=== PATIENT | male | born 1935 | race Caucasian/White ===

== ENCOUNTER 2020-12-22 19:06 | Emergency (ER) | payer OTHER ==
[~2020-12-22] VITALS: Ht 172.7 cm; Wt 68.0 kg
[2020-12-23 00:20] VITALS: BP 122/83
[2020-12-23] MEDS ORDERED: TYLENOL325 M1 PO (02:01)
[2020-12-23] MEDS ORDERED: ASA81BEC PO (02:03)
[2020-12-23] MEDS ORDERED: LIPITOR 20 MG T20 M1 PO (02:04)
[2020-12-23] MEDS ORDERED: AMARYL2 MG PO (02:05)
[2020-12-23] MEDS ORDERED: LOPRESSOR50 MG PO ×2 (02:06→02:19)
[2020-12-23] MEDS ORDERED: TRAMADOL 50 MG50 MG PO (02:08)
[2020-12-23] MEDS ORDERED: TOPROL XL50 MG ×2 (02:11→03:52)
[2020-12-23] MEDS ORDERED: AMARYL2 M1 PO (02:18)
== END 2020-12-23 00:23 ==
LOC: ER 19:06
DX: F43.0 Acute stress reaction (principal); Z20.822 Contact with and (suspected) exposure to COVID-19; R11.0 Nausea; E10.9 Type 1 diabetes mellitus without complications; E78.5 Hyperlipidemia, unspecified; I10 Essential (primary) hypertension

== ENCOUNTER 2020-12-22 20:20 | Inpatient (IN) | payer OTHER ==
[~2020-12-22] VITALS: Ht 165.1 cm; Wt 63.5 kg
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
[2020-12-23 00:30] VITALS: BP 132/82
[2020-12-23] MEDS ORDERED: TYLENOL325 M1 PO (02:01)
[2020-12-23] MEDS ORDERED: ASA81BEC PO (02:03)
[2020-12-23] MEDS ORDERED: LIPITOR 20 MG T20 M1 PO (02:04)
[2020-12-23] MEDS ORDERED: AMARYL2 MG PO (02:05)
[2020-12-23] MEDS ORDERED: LOPRESSOR50 MG PO ×2 (02:06→02:19)
[2020-12-23] MEDS ORDERED: TRAMADOL 50 MG50 MG PO (02:08)
[2020-12-23] MEDS ORDERED: TOPROL XL50 MG ×2 (02:11→03:52)
[2020-12-23] MEDS ORDERED: AMARYL2 M1 PO (02:18)
[2020-12-23 08:25] VITALS: BP 114/65
--- NOTE | 2020-12-23 14:40 | NUR ---
Alert and orientated X 4. States he is here for an evaluation and wants to get started. Denies SI/HI. Ambulates with slightly irregular gait but steady with walker. Breath sounds clear. Reg HR auscultated. Color pink with brisk capillary refill and palpable peripheral pulses. Fingers and toes slightly cool. No edema noted. Independent with voiding. Active bowel sounds over soft, rounded abdomen. States he had BM 2 days ago. Calm, cooperative and pleasant. Compliant. To CT with VISUAL PRESENTATION MANAGER, results per report, no acute processes. Sitting in day room without s/o distress. Dr. Chery notified of hyperglycemia, ordering insulin sliding scale.
[2020-12-23 19:55] VITALS: BP 121/66
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
[2020-12-23 23:15] VITALS: BP 121/66
[2020-12-23 23:21] VITALS: BP 121/66
--- NOTE | 2020-12-24 02:25 | NUR ---
Assumed care on 12/23/20 @ 1900, in bed awakens to voice, Cooperative with care, oriented x 2-3. FSBS 183, 3 U of S/S insulin provided. Bed in low position, low fall risk, rounding as per unit protocol for safety and comfort.
[2020-12-24 09:49] VITALS: BP 110/88
--- NOTE | 2020-12-24 10:34 | NUR ---
SW completed patient pyscho assessment and treatment plan
--- NOTE | 2020-12-24 12:02 | NUR ---
"ITS ABOUT TIME I GET SOME MEDICINE HERE-I HAVEN'T GOTTEN ANY YET" PER PT DURING AM MED PASS-ON APPROACH OBSERVED TO BE SITTING IN DAYROOM EATING BREAKFAST. ORIENTED TO PERSON,PLACE-NO TO DATE. WHEN QUESTIONED ABOUT INCIDENTS LEADING TO HOSPITAL STAY IS VAGUE STATING "I GUESS THEY THOUGHT I NEEDED MY HEAD EXAMINED" USING ROLLER WALKER FOR AMBULATION AND GAIT IS SLOW AND STEADY WITH ASSISITVE DEVICE. DENIES SI/SH/HI. COMPLIENT WITH MEDS AND UNIT RULES/STRUCTUR. ATTENDED GROUPS WITHOUT PROMPTING. APPETTIE IS GOOD. DOES STATE DURING AM ASSESSMENT THAT HIP IS "HURTIN A TWINGE" BUT DENIES NEED FOR PRN MEDICATION WHEN OFFERED. NO AGITATION NOTED OR REPORTED.
[2020-12-24 19:59] VITALS: BP 139/80
--- NOTE | 2020-12-25 05:05 | NUR ---
Assumed care of pt at 1900. Pt is in room at start of shift and he has remained there. Pt is calm, pleasant and cooperative with nursing assessment and medcations Pt tasks, pt takes mediations whole and with water. Pt denies pain. Denies depression, anxiety, SI/HI. Pt HS blood sugar was 290 and pt received 6 Units of sliding scale insulin. Pt remained in his room most of night, but did come out to dining area briefly for HS snack. Pt rested quietly in bed throughout night and appeared to be sleeping. Pt remains on q 12 minute rounds for safety. Will continue to monitor for any changes in mood and behavior. Pt affect was bright during assessment as he told this nurse about his dogs and cat.
--- NOTE | 2020-12-25 09:30 | NUR ---
Nutirtion: pt admitted with unspecified psychosis; episode of agressive behavior. Intake over weekend was variable 5-85%. RN today reports pt ate 100% of breakfast. Wt is WNL. Pt with hx of DM. BG 172-290. No metabolic labs. Meds: statin, Glimepiride, insulin. Wt is WNL, no wt hx. Will add Glucerna to lunch trays. Assess at mild nutrition risk at this time; RD to follow up by 12/29.
[2020-12-25 10:29] VITALS: BP 121/72
--- NOTE | 2020-12-25 14:39 | NUR ---
Assumed pt care at 0700. pt was calm and co-operative. alert and oriented x4. Assessments completed,VSS. Ambulates with a walker.pt uses a urinal. pt denies si/hi. At this time there is no c/o of pain. ATE 100% of his breakfast.Took his meds whole with thin liquid, no difficulty noted. after lunch pt went back to his room to get rest. At this time pt is in group participating.Will continue to monitor.
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
[2020-12-25 19:06] LABS: SYPHILIS AB Non Reactive (Non Reactive)
[2020-12-25 19:27] VITALS: BP 116/67
--- NOTE | 2020-12-26 02:17 | NUR ---
ASSESSMENT: PT REMAIN ALERT AND ORIENT TIMES THREE. DENIED SI/HI PT SITTING QUIETLY IN THE DAY AREA OBSERVING THE EVENTS SURROUNDING HIM. PT DENIED PAIN, SOB AND N/V. PT LATER CAME OUT TO THE DAY AREA FOR APPROXIMATELY 15 MINS ATT 0200 STATING THAT HE WAS SAD BECAUSE THE DOCTOR TOLD HIM THAT HE WOULD NOT BE RETURNING HOME WHEN HE LEAVES HERE; HE WOULD BE GOING TO ANOTHER FACILITY FOR SKILLED NURSING TREATMENT. ENCOURAGEMENT AND REASSURANCE GIVEN TO THE PT. SOON HE WENT BACK TO BED. WILL CONTINUE TO MONITOR.
--- NOTE | 2020-12-26 07:27 | EKG ---
[place] [address] [facility] [place] [address] ELECTROCARDIOGRAM REPORT Name: NAUN SULLIVAN Room #: 523B-B ADM IN M.R.#: [id number] Admission: 12/23/20 Attend Phys: José Miguel Hutton DO Discharge: Date of : 37 Report #: [id number] [facility] Test Date: 2020-12-25 Test Time: 18:33:52 Pat Name: NAUN SULLIVAN Department: Room: 523B B Gender: M Hose Turner: CHUY : 1935 Requested By: José Miguel Hutton Order Number: [id number] : Jimbo Pabon Measurements Intervals Rolfe Rate: 72 P: 10 MI: 111 QRS: 56 QRSD: 96 T: 31 QT: 413 QTc: 453 Interpretive Statements Sinus rhythm Borderline short MI interval Low voltage, extremity leads No previous ECG available for comparison Electronically Signed On 12-26-2020 7:27:14 CDT by Jimbo Pabon [email or web address] <ELECTRONICALLY SIGNED> By: Jimbo Pabon MD, [facility] 12/26/20 0727 183 183 Jimbo Pabon MD, FACC /EPI
[2020-12-26 07:55] VITALS: BP 97/62
--- NOTE | 2020-12-26 09:58 | NUR ---
Assumed pt care at 0700. pt was alert and oriented x4. pt was calm and co-operative with care. denies si/hi. no c/o of pain at this time. Assessments completed Vss. attended groups, partially participated. ambulates with a walker. took medication whole without difficulty. pt metoprolol was not administer because his blood pressure was low, 97/62. at this time pt is currently sitting in the room. will continue to monitor.
[2020-12-26 19:27] VITALS: BP 126/70
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
[2020-12-27 09:15] VITALS: BP 123/82
--- NOTE | 2020-12-27 11:18 | NUR ---
PATIENT HAS BEEN UP, AND OUT ON THE UNIT, PARTICIPATES IN GROUP THERAPY. PATIENT TOOK ALL MEDICATION WHOLE WITHOUT DIFFICULTY, HE IS EATING MEALS, AND DRINKING FLUID WELL. PATIENT DENIES SUICIDAL/HOMICIDAL IDEATION, HE DENIES DEPRESSION/ANXIETY/PAIN, " I FEEL PRETTY GOOD, AM GOING HOME TODAY, MY DAUGHTER IS DROPPING ALL THE CHARGES, AND I GET TO GO HOME" PATIENT WILL NOT DISCLOSE WHAT CHARGES DAUGHTER ABOUT TO DROP. AFFECT IS BRIGHT/EUTHYMIC. MOOD IS CALM. NO SLIDING SCALE INSULIN ADMINISTERED THIS MORNING, BLOOD SUGAR WITH RESULT OF 149. NO SIGN OF ACUTE DISTRESS NOTED AT THIS TIME, WILL MONITOR FOR SAFETY.
--- NOTE | 2020-12-27 13:06 | NUR ---
ASTRID received a vm from Gretchen stating that she and her family have decided that pt should come home; pt's can not bear placing him in a nursing facility. There is also concern about the costs. ASTRID and Dr. Hutton contacted Gretchen at [phone] and spoke with her about d/c. Dr. Hutton agreed to keep pt at least until the beginning of next week to monitor the recent med change he made. Gretchen said she has been researching elder care services to get in home care for pt. ASTRID sent Gretchen a welcome email to [email or web address]. ASTRID team will continue to follow pt during his stay on this unit.
[2020-12-27 19:21] VITALS: BP 132/73
--- NOTE | 2020-12-28 03:26 | NUR ---
ASSUMED CARE FROM DAY SHIFT PT RESTING IN BED WHEN ASSUMED CARE, NO CONCERNS VOICED PT, PT STATES" IM TRYING TO BE GOOD SO I CAN GET BACK HOME. PO MEDICATION, PT THEN ABULATED TO DAYRROM FOR A SHORT TIME THEN RETURNED TO ROOM. SLEEPING QUIETLY THROUGHOUT ROUNDING. WILL CONITNUE WITH CURRENT PLAN OF CARE.
[2020-12-28 07:20] VITALS: BP 97/56
[2020-12-28 09:41] VITALS: BP 97/56
--- NOTE | 2020-12-28 11:30 | NUR ---
Alert and orientated X4. Calm, cooperative. Denies SI/HI. Breath sounds clear. Reg HR auscultated. Color pink with brisk capillary refill and palpable peripheral pulses. No edema noted. Yellow urine per toilet. Active bowel sounds over soft, rounded abdomen. Reg gait with walker.
[2020-12-28 19:15] VITALS: BP 100/53
[2020-12-29 10:14] VITALS: BP 105/76
--- NOTE | 2020-12-29 11:41 | NUR ---
PT ALERT AND ORIENTED TIMES FOUR. VSS. PT DENIES S/HI/AH/VH, AND PAIN. PT TOLERATES MEDS AND MEALS. PT ATTENDED GROUPS THIS SHIFT. WILL CONTINUE TO MONITOR.
--- NOTE | 2020-12-29 15:17 | NUR ---
ASTRID received a call from Liz with [facility]. ASTRID provided an update to her concerning the pt wanting pt home. 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 She said that Gretchen also told her she is working on services for pt. SW team will continue to follow pt during his stay on this unit.
--- NOTE | 2020-12-29 15:25 | NUR ---
RT Progress Note- Abhinav has been present in the milieu and recreation therapy groups since his admission. Abhinav has been hyper focused on his marriage and discharge and is difficult to engage in any topics outside of these. He has not displayed any aggression or agitation in groups. OPENER will continue to encourage participation.
[2020-12-29 19:36] VITALS: BP 103/59
--- NOTE | 2020-12-29 23:53 | NUR ---
Alert and orientated X4. Calm, cooperative and compliant. States he is here for an evaluation and it is going very well. Took med whole with H2O. Ambulates with walker with slow, regular gait. Breath sounds clear. Reg HR auscultated. Color pink with brisk capillary refill and palpable peripheral pulses. No edema noted. 500 cc clear yellow urine per urinal. Active bowel sounds over soft, flat abdomen. States he had BM earlier in evening. Currently sleeping without s/o distress.
[2020-12-30 09:13] VITALS: BP 144/81
[2020-12-30 11:27] VITALS: BP 144/97
--- NOTE | 2020-12-30 13:25 | NUR ---
132 RESUMMED CARE FROM OVERNIGHT SHIFT THIS AM, PATIENT IN DAY ROOM CALM QUIET. PATIENT ATE BREAKFAST TOOK MEDICATION WITHOUT INCIDENCE, PATIENT ALERT ORIENTED TIMES 4. PATIENTS ABDOMEN SOFT BOWEL SOUNDS PRESENT PATIENTS LUNGS CLEAR. PATIENT DENIES SI/HI/AH/VH AT PRESENT. PATIENT CALM COOPERATIVE PARTICIPATES IN GROUPS NO BEHAVIORS THIS SHIFT. WILL CONTINUE TO MONITOR PATIENT FOR SAFETY AND BEHAVIORS.
[2020-12-30 15:56] LABS: URINE BILIRUBIN NEGATIVE (Negative); URINE BLOOD NEGATIVE (Negative); URINE CLARITY CLEAR; URINE COLOR YELLOW; URINE GLUCOSE-RANDOM* TRACE (Negative); URINE KETONES NEGATIVE (Negative); URINE LEUKOCYTES-REFLEX NEGATIVE (Negative); URINE NITRITE-REFLEX NEGATIVE (Negative); URINE PROTEIN (DIPSTICK) NEGATIVE (Negative); URINE SPECIFIC GRAVITY 1.025 (1.005-1.035)
--- NOTE | 2020-12-30 16:22 | NUR ---
SW met with pt 1:1 to help him process his feelings related to being hospitalized. He expressed worry about not knowing when he will be discharged. He also reported the last couple of times he tried calling his , there was no answer. SW team will continue to monitor.
[2020-12-30 19:20] VITALS: BP 105/61
[2020-12-30] MEDS ORDERED: DIGOXIN125 MCG PO (20:31)
[2020-12-30] MEDS ORDERED: ENOXAPARIN40 MG/0.1 SUBQ (20:32)
[2020-12-30] MEDS ORDERED: DONEPEZIL HCL 55 M1 PO (20:32)
[2020-12-30] MEDS ORDERED: LEVETIRACETAM750 MG PO (20:33)
--- NOTE | 2020-12-30 22:55 | NUR ---
Alert and orientated X 4. Calm, cooperative and compliant. States his keeps telling him he will be discharged soon. Denies SI/HI. Breath sounds clear. Reg HR auscultated. Color pink with brisk capillary refill and palpable peripheral pulses. No edema. Yellow urine per urinal. Active bowel sounds over soft, rounded abdomen. States he had BM yesterday. Declines HS snack stating he ate 100% of dinner. Ambulates with walker with regular steady gait. Currently awake in room, no s/o distress.
[2020-12-31 06:12] LABS: ABSOLUTE NEUTROPHILS 5.5 thou/uL (1.4-8.2); BASOPHILS 0.4 % (0.0-2.0); HEMATOCRIT 42.3 % (42.0-52.0); HEMOGLOBIN 14.2 gm/dL (14.0-18.0); LYMPHOCYTES 28.7 % (24.0-44.0); MCH 29.4 pg (26.0-34.0); MCHC 33.6 g/dL (28.0-37.0); MCV 87.6 fL (80.0-100.0); MONOCYTES 9.8 % (1.0-8.0); PLATELET COUNT 232 thou/uL (150-400); POLYS 58.1 % (36.0-66.0); RBC 4.83 mil/uL (4.50-6.00); RDW 13.7 % (10.5-14.5); WBC 9.4 thou/uL (4.0-11.0)
[2020-12-31 06:39] LABS: ALBUMIN 3.8 g/dL (3.4-5.0); ANION GAP 7 mmol/L (7-16); BUN 16 mg/dL (7-18); CALCIUM 9.6 mg/dL (8.5-10.1); CHLORIDE 103 mmol/L (98-107); CO2 31 mmol/L (21-32); CREATININE 0.9 mg/dL (0.7-1.3); DIGOXIN < 0.2 ng/mL (0.9-2.0); GLUCOSE 159 mg/dL (74-106); MAGNESIUM 2.1 mg/dL (1.8-2.4); PHOSPHORUS 3.9 mg/dL (2.6-4.7); POTASSIUM 4.9 mmol/L (3.5-5.1); SGOT 13 U/L (15-37); SGPT 23 U/L (16-63); SODIUM 141 mmol/L (136-145); TOTAL BILIRUBIN 0.4 mg/dL (0.2-1.0); TOTAL PROTEIN 6.6 g/dL (6.4-8.2)
[2020-12-31 08:23] VITALS: BP 94/63
--- NOTE | 2020-12-31 09:27 | NUR ---
Assumed pt care at 0700. alert and oriented x4. Assessments completed,VSS. took meds whole, no difficulty noted. Pt have a steady. ambulates with a worker.denies si/hi. at this time there is no c/o of pain. participated in groups. no sign upon assessments. will continue to monitor.
[2020-12-31 19:32] VITALS: BP 99/61
--- NOTE | 2021-01-01 03:18 | NUR ---
12-03-20 CARE TRANSFERRED 1900 OBSERVED PT SITTING IN DAY ROOM. PT AAOX3, VSS, RR EVEN AND NONLABORED ON RA. PT DENIES PAIN AND SI/HI. PT REPORTS HE IS READY TO GO HOME AND SPOKE WITH HIS TODAY. PT HAS BEEN CALM AND COOPERATIVE THROUGHOUT NURSING ASSESSMENT. DURING MEDICATION ADMIN PT HAD NO DIFFICULTIES AND PT BED WAS ADJUSTED FOR COMFORT. ZERO S/S OF ACUTE DISTRESS NOTED, PT WILL CONTINUE TO BE MONITOR PER [facility] PROTOCOL.
--- NOTE | 2021-01-01 13:38 | NUR ---
Assumed pt care at 0700. pt was alert and oriented x4. took meds whole, no difficulty noted. ambulates with a steady gait. Denies si/hi. There is no c/o of pain at this time. pt participated in groups. calm and co-operative. Assessments completed vss. PT his goal was to go home and his was working on his D/C. NO SIGN OF ACUTE DISTRESS UPON ASSESSMENTS. At this time pt is in the day room watching TV. will continue to monitor
--- NOTE | 2021-01-01 14:40 | NUR ---
Nutrition F/u: Wt up 5 lb from last assessement. Intake 100% most meals. Pt is reporting he is ready to discharge. Albumin WNL. Meds reviewed. BG 137-199. Continue POC. Pt assessed at low nutriiton risk.
[2021-01-01 19:53] VITALS: BP 117/86
--- NOTE | 2021-01-02 03:51 | NUR ---
01-01-21 CARE TRANSFERRED 1900 OBSERVED PT SITTING IN DAY ROOM. LATER PT RESTING IN BED WITH EYES CLOSED, EASILY AWAKEN TO VOICE, PT AAOX4, VSS, RR EVEN AND NONLABORED ON RA. PT DENIES SI/HI AND PAIN. PT HAS REMAINED CALM, COOPERATIVE AND PLEASANT. ZERO S/S OF ACUTE DISTRESS NOTED, PT WILL CONTINUE TO BE MONITOR PER [facility] PROTOCOL.
[2021-01-02 07:30] VITALS: BP 138/68
--- NOTE | 2021-01-02 10:09 | NUR ---
Alert and orientated X4. Denies SI/HI. Looking forward to going home. Calm, cooperative and compliant. Currently watching TV with peers in day room. Ambulates with regular, steady gait with walker. Breath sounds clear. Reg HR auscultated. Color pink with brisk capillary refill and palpable peripheral pulses. No edema. Independent with voiding. Active bowel sounds over soft, flat abdomen. States he had BM yesterday.
[2021-01-02 11:06] VITALS: BP 138/68
--- NOTE | 2021-01-02 11:16 | NUR ---
ASTRID received a call from Gretchen Reddy asking if pt can be discharged today. ASTRID contacted Dr. Hutton who agreed that pt can discharge after 1pm. ASTRID and Gretchen agreed upon a 1400 d/c. ASTRID contacted nursing staff and provided an update. ASTRID contacted pt's PCP Dr. Kashif Forbes and scheduled a PCP appt for January 16 @1300. ASTRID also obtained a fax number to send pt's discharge docs to [phone]. ASTRID reviewed [facility] process for intakes, and added this information and his PCP appt to a SW Handout. ASTRID reviewed this handout with pt and provided nursing staff a copy to place into pt's discharge packet. SW team will continue to follow pt during his stay on this unit.
[2021-01-02] MEDS ORDERED: METOPROLOL SUCC25 M1 PO (12:28)
[2021-01-02] MEDS ORDERED: OXCARBAZEPINE300 MG PO (12:29)
[2021-01-02] MEDS ORDERED: NAMENDA 5 MG TAB5 M1 PO (12:31)
[2021-01-02] MEDS ORDERED: PT HOME MEDICATION MISCELL (12:32)
[2021-01-02] MEDS ORDERED: VITAMIN D3125 MC1 PO (12:32)
[2021-01-02] MEDS ORDERED: PEPCID20 MG PO (12:32)
--- NOTE | 2021-01-02 14:52 | NUR ---
SW D/C NOTE SW faxed discharge docs including his enactment letter and SW handout to pt's PCP. ASTRID will file docs in pt's hospital file. No other needs for SW team to address at this time.
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
== END 2021-01-02 14:35 | disposition home or self-care (01) | DRG 57 ==
LOC: SBH
PROVIDERS: Internal Medicine; ADMIT Psychiatry & Neurology Psychiatry; ATTEND Psychiatry & Neurology Psychiatry
DX: G30.9 Alzheimer's disease, unspecified (principal); F02.81 Dementia in other diseases classified elsewhere, unspecified severity, with behavioral disturbance; F01.51 Vascular dementia, unspecified severity, with behavioral disturbance; E78.5 Hyperlipidemia, unspecified; I10 Essential (primary) hypertension; E10.9 Type 1 diabetes mellitus without complications; I51.9 Heart disease, unspecified; Z90.49 Acquired absence of other specified parts of digestive tract; Z28.21 Immunization not carried out because of patient refusal; Z23 Encounter for immunization
CPT/HCPCS: 10880